=== PATIENT | female | born 1990 | race Caucasian/White ===

== ENCOUNTER 2019-11-10 13:37 | Inpatient (IN) ==
[2019-11-10] MEDS ORDERED: MOTRIN PO PRN (16:49)
[2019-11-10] MEDS ORDERED: ZOFRAN IV PRN (16:49)
[2019-11-10] MEDS ORDERED: MAALOX PLUS LIQUID PO PRN (16:49)
[2019-11-10] MEDS ORDERED: PHENOBARBITAL IV PRN (16:49)
[2019-11-10] MEDS ORDERED: DULCOLAX PR PRN (16:49)
[2019-11-10] MEDS ORDERED: DESYREL PO PRN (16:49)
[2019-11-10] MEDS ORDERED: ZOFRAN ODT PO PRN (16:49)
[2019-11-10] MEDS ORDERED: NICODERM PATCH TD PRN (16:49)
[2019-11-10] MEDS ORDERED: IMODIUM PO PRN (16:49)
[2019-11-10] MEDS ORDERED: TYLENOL PO PRN (16:49)
[2019-11-10] MEDS ORDERED: D5W 1,000 ML IV PRN (16:49)
[2019-11-10] MEDS ORDERED: SENOKOT PO PRN (16:49)
[2019-11-10] MEDS ORDERED: TUBERSOL ID ONE (16:49)
[2019-11-10] MEDS ORDERED: SALINE LOCK IV FLUID XX ONE (16:49)
[2019-11-10] MEDS ORDERED: BENTYL PO PRN (16:49)
[2019-11-10 17:16] LABS: HEMOGLOBIN 14.4 g/dL (12.0-16.0); MCH 30.8 PG (27-31); MCHC 33.5 g/dL (33-37); MCV 91.9 FL (81-99); MPV 9.6 FL (7.4-10.4); RBC 4.68 XMIL (4.2-5.4); WBC 9.84 X1000 (4.8-10.8)
--- NOTE | 2019-11-10 17:26 | HISTORY AND PHYSICAL ---
CHIEF COMPLAINT: Nausea, vomiting. HISTORY OF PRESENT ILLNESS: The patient is a 29-year-old female presented to [facility] secondary to nausea, vomiting, abdominal pain, myalgias, paresthesias. Notes that she actually has been drinking heavily here lately. States that she started drinking to get off opiates but unfortunately cannot get off alcohol at this point. SOCIAL HISTORY: She is . Currently unemployed. Lives at home in [place]. PAST MEDICAL HISTORY: Significant for chronic anxiety, depression, history of blackouts that are alcohol related, history of black tarry stools due to hemorrhoids, although he has not had recently. MEDICATIONS: None. ALLERGIES: None. REVIEW OF SYSTEMS: CIWA score is 25 secondary to nausea, vomiting, paroxysmal sweating, abdominal pain, paresthesias, fidgety, nervous, anxious, unable sit still, frequently waking up, unable to sleep as frequently feels like her skin is crawling. Denies any chest pain, palpitation, denies any fevers or chills. Denies any current blood in her stool, blood in her emesis, denies diarrhea, constipation, melena, hematochezia currently, denies chest pain, palpitation, denies headaches, blurred vision. SUBSTANCE ABUSE HISTORY: The patient notes she has a chronic history of anxiety, depression, she has history of cutting when she was age 13, history of popping herself with rubber bands after that. [facility] 2007 [facility], stayed sober for 7-9 years. States she has had a relationship problems from her because of her alcohol issues. Started drinking at age 11, currently drinks a half to a liter of whiskey a day sometimes 12 beers in addition to that. Started marijuana at age 9 currently uses a couple times a month. Started meth at 13, rarely uses. Has not used since 17. Started cocaine at 14, only used at age 14. Started mushrooms and ecstasy at 15, started opiates at 12 used a until a year and half ago, she weaned off opiates while drinking alcohol. Unfortunately, she is unable to stop drinking alcohol. Started nicotine age 9 currently smokes half a pack to a pack a day. Started at 29 used for a year and a half. FAMILY HISTORY: Noncontributory. PHYSICAL: Vital signs reviewed and stable. Patient is awake, alert, currently in no respiratory distress.HEENT: Normocephalic. Neck: Supple. CV: Regular rate. Chest: Clear. Abdomen: Soft. Extremities: Moves all extremities. Neuro: No focal neurological changes. Patient is awake, alert, fidgety, anxious. She is moving about but pleasant to talk with. Does answer questions appropriately. HEENT: Normocephalic. Neck: Supple. CV: Regular rate. Chest: Clear, nonlabored. Abdomen: Soft. Extremities: Moves all extremities. ASSESSMENT: 1. Nausea, vomiting. 2. Abdominal pain. 3. Paresthesias. 4. Paroxysmal sweating. 5. Opiate abuse by history although not currently using. 6. Polysubstance use and abuse by history. 7. Acute alcohol abuse and withdrawal. PLAN: We are going to admit patient the hospital, place her on high-dose Librium taper. Will continue to follow. Continue counseling. Discussed with her as well the use of naltrexone or Vivitrol. We will continue to follow. Further orders as needed. cc: Ed German MD MTDD
[2019-11-10 17:34] LABS: INR 0.92; PROTIME 12.8 Seconds (11.0-16.0)
[2019-11-10 17:45] LABS: AMYLASE 38 U/L (20-200); LIPASE 21 U/L (13-60)
[2019-11-10 18:05] LABS: AGAP 20; ALBUMIN 4.8 g/dL (3.5-5.0); ALKALINE PHOSPHATASE 67 U/L (32-104); BUN 6 mg/dL (8-22); CALCIUM 9.8 mg/dL (8.8-10.2); CHLORIDE 98 mmol/L (98-107); COSMO 275; CREATININE 0.6 mg/dL (0.5-0.9); ESTIMATED GFR > 60; GLUCOSE 92 mg/dL (70-104); GOT 20 U/L (10-30); GPT 16 U/L (10-36); POTASSIUM 3.6 mmol/L (3.5-5.1); SODIUM 139 mmol/L (136-145); TCO2 21 mmol/L (25-35); TOTAL PROTEIN 7.3 g/dL (6.3-8.3)
[2019-11-10] MEDS: LIBRIUM PO SCH ×2 (18:18→23:08)
[2019-11-10] MEDS: ATARAX PO PRN (19:31)
[2019-11-11] MEDS: LIBRIUM PO SCH ×4 (05:15→23:31)
[2019-11-11 06:06] LABS: URINE SOURCE VOIDED
[2019-11-11 06:23] LABS: UR AMPHETAMINES QUAL PRESUMPTIVE POSITIVE (NONE DETECT); UR BARBITUATES QUAL NONE DETECTED (NONE DETECT); UR BENZODIAZEPIN QUAL PRESUMPTIVE POSITIVE (NONE DETECT); UR CANNABINOIDS QUAL PRESUMPTIVE POSITIVE (NONE DETECT); UR COCAINE QUAL NONE DETECTED (NONE DETECT); UR METHADONE QUAL NONE DETECTED (NONE DETECT); UR METHAMPHETAMINE QUAL NONE DETECTED (NONE DETECT); UR OPIATES QUAL NONE DETECTED (NONE DETECT); UR OXYCODONE QUAL NONE DETECTED (NONE DETECT); UR PCP QUAL NONE DETECTED (NONE DETECT); UR PROPOXYPHENE QUAL NONE DETECTED (NONE DETECT); UR TCA QUAL NONE DETECTED (NONE DETECT)
[2019-11-11] MEDS: PROTONIX [NONFORMULARY] PO SCH (06:27)
[2019-11-11 07:04] LABS: BILIRUBIN URINE NEGATIVE (NEGATIVE); BLOOD URINE NEGATIVE (NEGATIVE); COLOR YELLOW; GLUCOSE URINE NEGATIVE (NEGATIVE); KETONE URINE NEGATIVE (NEGATIVE); LEUKOCYTES URINE NEGATIVE (NEGATIVE); NITRITE URINE NEGATIVE (NEGATIVE); PH URINE 6.5; PROTEIN URINE TRACE mg/dL (NEGATIVE); SP GRAVITY URINE 1.019; TURBIDITY URINE CLEAR (CLEAR); UROBILINOGEN URINE NORMAL (NORMAL)
[2019-11-11 07:05] LABS: UR EPITHELIAL CELLS <10 /HPF (<10); URINE BACTERIA NEGATIVE /HPF; URINE WBC <10 /HPF (<10)
[2019-11-11] MEDS ORDERED: M.V.I.-12 10 ML, FOLIC ACID 1 MG, MAGNESIUM SULFATE 1 GM, THIAMINE 100 MG in NS 1,000 ML IV ONE (09:00)
[2019-11-11] MEDS: THERA M PLUS PO SCH (11:44)
[2019-11-11] MEDS: VITAMIN B-1 PO SCH (11:44)
[2019-11-11] MEDS: FOLIC ACID PO SCH (11:44)
[2019-11-11] MEDS: ATARAX PO PRN (11:44)
[2019-11-11] MEDS: ROBAXIN PO PRN ×2 (14:11→23:31)
[2019-11-12] MEDS: ATARAX PO PRN ×2 (00:30→12:19)
[2019-11-12] MEDS: SEROQUEL PO PRN ×2 (00:30→23:29)
[2019-11-12] MEDS: LIBRIUM PO SCH ×3 (06:19→17:36)
[2019-11-12] MEDS: PROTONIX [NONFORMULARY] PO SCH (06:19)
[2019-11-12] MEDS: THERA M PLUS PO SCH (09:34)
[2019-11-12] MEDS: VITAMIN B-1 PO SCH (09:34)
[2019-11-12] MEDS: FOLIC ACID PO SCH (09:34)
--- NOTE | 2019-11-12 18:21 | PROGRESS NOTE ---
DATE: 11/11/2019 SUBJECTIVE: Patient notes that she is feeling a little bit better. Denies any fevers or chills. Denies cough. PHYSICAL EXAMINATION: Vital Signs: Reviewed. She is afebrile. Pulse in the 80s. Blood pressure is stable. General: Patient is awake in no distress lying in the bed. HEENT: Normocephalic. Neck: Supple. Cardiovascular: Regular rate. Chest: Clear. Abdomen: Soft. Neurologic: No changes. ASSESSMENT: 1. Nausea and vomiting. 2. Abdominal pain. 3. Myalgias. 4. Paresthesias. 5. Alcohol abuse withdrawal and stabilization. PLAN: We will continue patient in hospital. Continue Librium taper. Further orders as needed. Continue counseling. cc: Ed German MD
--- NOTE | 2019-11-12 22:03 | PROGRESS NOTE ---
DATE: 11/12/2019 SUBJECTIVE: Patient with no new complaints. States although she feels bad, she is starting to feel better. Denies any fevers or chills. Denies cough or congestion. PHYSICAL EXAMINATION: Vital Signs: Reviewed. Blood pressure is stable. Heart rate 80s. Respiratory rate 20. General: She is in no distress. Chest: Nonlabored. Abdomen: Nondistended. Extremities: Moves all extremities. Neurologic: No focal changes. ASSESSMENT: 1. Nausea and vomiting. 2. Abdominal pain. 3. Myalgias. 4. Paresthesias. 5. Paroxysmal sweating. 6. Alcohol abuse withdrawal and stabilization. PLAN: We are going to continue patient in the hospital, continue symptomatic treatment, continue counseling. Further orders as needed. cc: Ed German MD
[2019-11-13] MEDS: LIBRIUM PO SCH ×2 (06:17)
[2019-11-13] MEDS: PROTONIX [NONFORMULARY] PO SCH (06:17)
[2019-11-13] MEDS: THERA M PLUS PO SCH ×2 (07:55→09:28)
[2019-11-13] MEDS: VITAMIN B-1 PO SCH ×2 (07:55→09:28)
[2019-11-13] MEDS: FOLIC ACID PO SCH ×2 (07:56→09:28)
[2019-11-13 08:41] VITALS: BP 129/85
[2019-11-13] MEDS ORDERED: VIVITROL IM ONE (09:40)
--- NOTE | 2019-11-14 12:28 | DISCHARGE SUMMARY ---
ADMISSION DATE: 11/10/2019 DISCHARGE DATE: 11/13/2019 DISCHARGE DIAGNOSES: 1. Nausea and vomiting. 2. Abdominal pain. 3. Myalgias and paresthesias. 4. Alcohol abuse withdrawal and stabilization. CONSULTATIONS: None. PROCEDURES: None. BRIEF HOSPITAL COURSE: The patient is a 29-year-old female who presented to [facility] program secondary to nausea, vomiting, abdominal pain, and alcohol abuse. The patient notes that she had been abusing opiates for quite some time. She weaned herself off opiates, but unfortunately used alcohol to do so. She began drinking heavily and was unable to stop drinking. She presented with alcohol withdrawal symptoms, was placed on high-dose Librium taper. Counseling was performed each day. On discharge she is awake, alert. She is in no distress. Overall she is feeling better. She is having no current distress. DISPOSITION: We discussed with patient medication assisted therapy, i.e. Vivitrol, which she did take injection, as well as naltrexone. She will continue to follow up as outpatient with treatment facility of choice. TIME SPENT: Greater than 30 minutes was spent in total care. cc: Ed German MD
== END 2019-11-13 10:40 | disposition home or self-care (01) | DRG 392 ==
LOC: P.DIRADM 14:50 → P.MEDSURG 15:24
PROVIDERS: ADMIT Family Medicine; ATTEND Family Medicine